=== PATIENT | male | born 1965 | race African-American/Black ===

== ENCOUNTER → 2016-10-24 | Outpatient (CLI) | payer OTHER ==
--- NOTE | 2016-10-24 16:59 | DX ---
Limited lumbar spine AP and lateral. History: Low back strain, subsequent encounter (S 39.012D) Findings: Vertebral body heights are well maintained. There are no subluxations. No fractures are se en. Intervertebral disks appear to be normal. Impression: Normal limited lumbar spine series.
--- NOTE | 2016-10-24 17:04 | DX ---
Pelvis single view 1458 hours. History: Pain. Findings: Osseous structures are normal in appearance. There are no lytic or sclerotic osseous lesion s. The hip joints as well as SI joints and symphysis are normal in appearance. Soft tissues are unrem arkable. Impression: 1. Normal pelvis x-ray.
== END ==
LOC: BRMIMAGING 14:48
PROVIDERS: ATTEND Radiology Diagnostic Radiology
DX: S39.012D Strain of muscle, fascia and tendon of lower back, subsequent encounter (principal); R10.2 Pelvic and perineal pain
CPT/HCPCS: 72100-PO; 72170-PO